=== PATIENT | male | born 1990 | race Asian ===

== ENCOUNTER 2025-01-10 15:14 | Emergency (ER) | payer OTHER ==
[~2025-01-10] VITALS: Ht 180.3 cm; Wt 85.0 kg
[2025-01-10 15:24] VITALS: O2SAT 100
[2025-01-10 18:28] LABS: INFLUENZA TYPE A Presumptive Negative (Pres. Neg.); INFLUENZA TYPE B Presumptive Negative (Pres. Neg.)
[2025-01-10] MEDS ORDERED: BENZ100C86 MT (18:38)
[2025-01-10] MEDS ORDERED: IBUP-2028 MT (18:40)
[2025-01-10 19:26] VITALS: BP 121/80; PULSE 88; RESP 16; TEMP 37.3; O2SAT 100
== END 2025-01-10 19:26 | disposition home or self-care (01) ==
LOC: ER 15:14
DX: B34.9 Viral infection, unspecified (principal); Z20.822 Contact with and (suspected) exposure to COVID-19
CPT/HCPCS: 71045; 87426; 87804; 99284